=== PATIENT | female | born 1930 | race African-American/Black ===

== ENCOUNTER 2016-12-27 07:34 | Emergency (ER) | payer MEDICARE, OTHER ==
--- NOTE | ~2016-12-27 | CR72 ---
[facility] A Service of [facility] RADIOLOGY TEXT RESULTS PATIENT: CATHIE ANDREW LOCATION: [facility] : 28 UNIT #: [id number] AGE: [address]: Zulma Rey MD SEX: F ORDER DR: [id number] [facility] [address] [place], [place] [address] [id number] E MR#: [id number] Acc #: [id number] NAME: CATHIE ANDREW : 1930 SEX: F STUDY DATE/TIME: 12/27/2016 7:45 UNIT: [facility] ROOM: STUDY DESCRIPTION: CR Chest Single View Portable Attending Physician: Zulma Rey M.D. Ordering Physician: Zulma Rey M.D. Primary Care Physician: Blake Ramachandran M.D. MEDICAL IMAGING REPORT This report is preliminary unless electronic signature is present EXAM Portable chest. HISTORY Shortness of air beginning today 12/27/2016 COMPARISON 03/17/2016 FINDINGS A portable view of the chest was obtained. The heart size and vascularity are normal. Lungs are clear. Sternotomy wires are present. IMPRESSION No active disease. Dictated by... Jero Geiger M.D. THIS IS AN ELECTRONICALLY VERIFIED REPORT Jero Geiger M.D. at 12/27/2016 2:17 PM Santo TD: 12/27/2016 09:09 JOB #: [id number] MEDICAL IMAGING REPORT COPY
--- NOTE | ~2016-12-27 | EKG ---
PATIENT: CATHIE ANDREW UNIT #: [id number] Ventricular Rate: 68 BPM Atrial Rate: 68 BPM P-R Interval: 182 ms QRS Duration: 128 ms Q-T Interval: 422 ms QTC Calculation(Bezet): 448 ms P [place]: 58 degrees Calculated R [place]: -55 degrees Calculated T [place]: 99 degrees Diagnosis Line: Normal sinus rhythm Diagnosis Line: Left axis deviation Diagnosis Line: Non-specific intra-ventricular conduction block Diagnosis Line: Abnormal ECG Diagnosis Line: No previous ECGs available Diagnosis Line: Confirmed by BERENICE VILLELA MD ([id number]) on 12/27/2016 Diagnosis Line: 5:46:19 PM INTERPRETING MD: MANOHAR ARNOLD
[~2016-12-27 07:34] MED LIST: ACETAMINOPHEN PO; ACTONEL PO; ALBUTEROL0.63 MG/3 IH; ALEVE; ALTACE1.25 M1 PO; AMIODARONE PO; ANTIVERT PO; APRESOLINE10 MG PO; ARTHRITIS PAIN650 M2 PO; ASPIRIN; ASPIRIN PO; ASPIRIN81 M1 PO; ASPIRINEC PO; ATENOLOL; ATENOLOL PO; AUGMENTIN; CALCIUM + D 6001 TA1 PO; CALCIUM 600 +1 EAC3 PO; CALCIUM1 TAB.CHEW PO; CALTRATE 600+D PO; CHLORIDE PO; CLARITIN10 MG; COLACE; COLACE PO; COMBIVENT INH14.7 GM INH; COMBIVENT MININEB INH; COMBIVENT14.7 GM INH; COUMADIN; COUMADIN PO; COUMADIN2.5 MG PO; COUMADIN3 MG PO; COZAAR PO; CRESTOR; EXTENDED PAIN650 MG PO; FEOSOL PO; FEVERALL650 MG/SUP PR; FOLIC ACID PO; FOLIC ACID1 MG PO; FOSINOPRIL PO; IMDUR; IMDUR PO; IMDUR-ER30 M1 PO; IMDUR-ER30 MG PO; INHALER; INSULIN ISOPHANE; ISORDIL; ISOSORBIDE DINI30 MG PO; K-DUR20 ME1 PO; KEFLEX PO; KEFLEX500 M1 PO; KEPPRA500 M2 DOB; KLOR-CON PO; LANTUS100 U/ML INJ; LANTUS100 U/ML SUBQ; LASIX; LASIX PO; LASIX20 MG PO; LASIX80 MG PO; LEVAQUIN PO; LIPITOR PO; LIPITOR40 MG PO; LISINOPRIL PO; LOPRESSOR PO; LORTAB 7.5-5001 TAB; LYRICA PO; METOPROLOL TAR25 MG PO; MICRO-K10 MEQ PO; MIRALAX17 GM PO/SL; MULTI-DAY VITAM1 TAB PO; NORVASC; NORVASC PO; NORVASC10 MG PO; NOVOLIN 70100 UNITS/ INJ; NOVOLIN N100 U/ML; NOVOLOG FL100 UNIT/1 SUBQ; NOVOLOG100 U/M2 SQ; NOVOLOG100 U/M2 SUBQ; NOVOLOG100 U/ML; NOVOLOG100 U/ML SQ; NOVOLOG100 U/ML SUBQ; OPTIVAR; PATANOL5 ML OP; PERCOCET 5-3251 TAB PO; PERCOCET5/325 PO; PHENERGAN; PHENERGAN25 MG PO; PREDNISONE PO; PRINIVIL; PROMETHAZINE-D240 ML PO; PROTONIX PO; RAMIPRIL5 MG PO; TESSALON PERLE100 M1 DOB; TRAMADOL HCL-AP1 TAB PO; TRAMADOL HCL50 M1 PO; ULTRAM PO; VIBRAMYCIN100 M1 DOB; VICODIN 5/500 T1 TAB PO; VITAMIN D 4001 UDTAB PO; VYTORIN PO; ZOCOR PO; [UNRECOGNIZED DRUG - OTHER]
[2016-12-27 08:27] LABS: BASOPHIL# 0.1 X10e3 (0-0.3); BASOPHIL% 1.1 % (0-2.5); EOSINOPHIL# 0.1 X10e3 (0-0.7); EOSINOPHIL% 1.4 % (0.0-7.0); HEMATOCRIT 32.8 % (35.0-45.0); HEMOGLOBIN 10.9 gm/dL (12.0-16.0); LYMPHOCYTE# 0.6 X10e3 (1.0-3.5); LYMPHOCYTE% 10.9 % (17.0-45.0); MEAN CELL VOLUME 86.5 FL (83-96); MEAN CORPUSCULAR HEMOGLOBIN 28.6 PG (28-34); MEAN CORPUSCULAR HGB CONC 33.1 g/dL (30-36); MEAN PLATELET VOLUME 8.2 FL (6.5-11.5); MONOCYTE# 0.4 X10e3 (0-1.0); MONOCYTE% 6.9 % (3.0-12.0); NEUTROPHIL# 4.2 X10e3 (1.5-7.1); NEUTROPHIL% 79.7 % (40-75); PLATELET COUNT 232 X10e3 (140-420); RED BLOOD COUNT 3.79 X10e (3.90-5.30); RED CELL DISTRIBUTION WIDTH 15.5 % (11.0-15.5); WHITE BLOOD COUNT 5.2 X10e3 (4.0-10.5)
[2016-12-27 08:31] LABS: DIFF IND NO
[2016-12-27 08:41] LABS: URINE SOURCE CLEAN CATCH
[2016-12-27 08:47] LABS: URINE APPEARANCE CLEAR; URINE BILIRUBIN NEG (NEG); URINE BLOOD NEG (NEG); URINE COLOR YELLOW; URINE GLUCOSE 250 MG/DL (NEG); URINE KETONE NEG (NEG); URINE LEUKOCYTE ESTERASE 1+ (NEG); URINE NITRATE NEG (NEG); URINE PROTEIN NEG (NEG); URINE SPECIFIC GRAVITY 1.011 (1.003-1.035); URINE UROBILINOGEN 0.2 MG/DL (NEG)
[2016-12-27 08:50] LABS: CULTURE INDICATED? YES; URINE BACTERIA AUWI 3+ (NEGATIVE); URINE SQUAMOUS EPITHELIAL CELL NONE SEEN /[HPF]
[2016-12-27 08:52] LABS: BLOOD UREA NITROGEN 16 mg/dL (9-23); CALCIUM SERUM 8.6 mg/dL (8.4-10.2); CARBON DIOXIDE 27 mmol/L (22-31); CHLORIDE 103 mmol/L (100-111); GLOM FILT RATE Estimated ABOVE60 mL/min (>60); GLUCOSE FASTING 228 mg/dL (70-110); POTASSIUM 3.1 mmol/L (3.5-5.1); SODIUM 139 mmol/L (135-145)
== END 2016-12-27 12:14 | disposition home or self-care (01) ==
LOC: CED 07:34
PROVIDERS: Student in an Organized Health Care Education/Training Program
DX: E11.649 Type 2 diabetes mellitus with hypoglycemia without coma (principal); I10 Essential (primary) hypertension; Z88.1 Allergy status to other antibiotic agents; Z88.8 Allergy status to other drugs, medicaments and biological substances
CPT/HCPCS: 71010; 80048; 81003; 82947; 83880; 85025; 87086; 93005; 96374; 99283

== ENCOUNTER → 2017-05-06 | Outpatient (CLI) | payer MEDICARE, OTHER ==
--- NOTE | ~2017-05-06 | MY11 ---
[facility] A Service of [facility] RADIOLOGY TEXT RESULTS PATIENT: CATHIE ANDREW LOCATION: [facility] : 28 UNIT #: [id number] AGE: [address]: SIRI RAMACHANDRAN MD ([facility]) SEX: F ORDER DR: [id number] [address] [address] [id number] O MR#: [id number] Acc #: [id number] NAME: CATHIE ANDREW : 1930 SEX: F STUDY DATE/TIME: 05/06/2017 9:39 UNIT: [facility] ROOM: STUDY DESCRIPTION: MY Mammogram Screening Dig Sil[place]re Attending Physician: Siri Ramachandran M.D. Referring Physician: Siri Ramachandran M.D. Ordering Physician: Siri Ramachandran M.D. Primary Care Physician: Siri Ramachandran M.D. MEDICAL IMAGING REPORT This report is preliminary unless electronic signature is present. EXAM Digital screening mammogram 05/06/2017 [facility] HISTORY 86-year-old woman no risk elevation. Prior excisional left breast biopsy. Annual screening. COMPARISON: Mammograms date to 11/24/2005 with most recent 04/17/2016. FINDINGS Digital imaging of each breast was completed utilizing a two-view examination of each breast in craniocaudal and mediolateral-oblique projections. Review and interpretation of digital mammograms include a second review in conjunction with FDA-approved CAD device. There is a normal parenchymal presentation bilaterally consistent with the patient's age. There are no breast masses imaged and no parenchymal asymmetry is visualized. There are no suspicious microcalcifications and I see no focal architectural disturbance. IMPRESSION Negative screening digital mammogram. One-year followup recommended. Patients over the age of 40 are entered into a reminder system with target due date for the next mammogram. A result letter will also be sent to the patient. BIRADS: 1 Negative [facility] A Service [facility] RADIOLOGY TEXT RESULTS PATIENT: CATHIE ANDREW LOCATION: [facility] : 28 UNIT #: [id number] AGE: [address]: SIRI RAMACHANDRAN MD ([facility]) SEX: F ORDER DR: Dictated by... Dale Hernandez M.D. THIS IS AN ELECTRONICALLY VERIFIED REPORT Dale Hernandez M.D. at 05/06/2017 2:39 PM LELE/leola TD: 05/06/2017 14:05 JOB #: [id number] MEDICAL IMAGING REPORT Page 1 of 1
== END | disposition home or self-care (01) ==
LOC: SMAM 09:02
DX: Z12.31 Encounter for screening mammogram for malignant neoplasm of breast (principal); Z91.89 Other specified personal risk factors, not elsewhere classified
CPT/HCPCS: G0202